=== PATIENT | female | born 1950 | race American Indian/Alaskan Native ===

== ENCOUNTER 2016-10-29 16:54 | Emergency (ER) | payer OTHER ==
[2016-10-29 17:58] VITALS: BP 149/73; PULSE 58; RESP 16; TEMP 98.3; O2SAT 100
--- NOTE | 2016-10-29 19:28 | ED PDOC ---
Lower Extremity Pain/Injury Time Seen by Provider: 10/29/16 18:58 Chief Complaint (Nursing): Fever Chief Complaint (Provider): knee pain History Per: Patient History/Exam Limitations: no limitations Additional Complaint(s): Brissa Carrillo is a 66 year old female, with a previous medical history of bone cancer, who presents to the ED with complaints of right knee pain ongoing for the past 2-3 days. Patient states associated symptoms of swelling to the right knee and bilateral calf pain but denies any chest pain or shortness of breath. Patient is status post a left knee replacement. PMD: none provided Past Medical History Reviewed: Historical Data, Nursing Documentation, Vital Signs Vital Signs: Last Vital Signs Temp 98.3 F 10/29/16 17:53 Pulse 58 L 10/29/16 17:53 Resp 16 10/29/16 17:53 BP 149/73 10/29/16 17:53 Pulse Ox 100 10/29/16 17:53 - Medical History PMH: No Chronic Diseases Other PMH: bone cancer - Family History Family History: States: Unknown Family Hx - Immunization History Hx Tetanus Toxoid Vaccination: No Hx Influenza Vaccination: No Hx Pneumococcal Vaccination: No - Home Medications Home Medications: Ambulatory Orders Medication Instructions Recorded Naproxen [Naprosyn] 500 mg PO Q12H #20 tab 10/29/16 - Allergies Allergies/Adverse Reactions: Allergies Allergy/AdvReac Type Severity Reaction Status Date / Time iodine Allergy ANAPHYLAXIS Verified 10/29/16 17:53 Review of Systems ROS Statement: Except As Marked, All Systems Reviewed And Found Negative Cardiovascular: Negative for: Chest Pain Respiratory: Negative for: Shortness of Breath Musculoskeletal: Positive for: Leg Pain (right knee pain and swelling ) Physical Exam - Reviewed Nursing Documentation Reviewed: Yes Vital Signs Reviewed: Yes - Physical Exam Appears: Positive for: Well, Non-toxic, No Acute Distress Cardiovascular/Chest: Positive for: Regular Rate, Rhythm Respiratory: Positive for: CNT, Normal Breath Sounds Extremity: Positive for: Normal ROM, Capillary Refill (< 2 seconds ), Swelling ( swelling to the right knee and lower pretibial areas bilaterally ). Negative for: Calf Tenderness, Other (warmth and effusion ) - ECG O2 Sat by Pulse Oximetry: 100 (RA) Pulse Ox Interpretation: Normal Medical Decision Making Medical Decision Making: Initial Plan: * labs * x-ray right knee * US duplex * reevaluation 22:06 US Duplex FINDINGS: Right deep veins: Unremarkable. No DVT in the right common femoral, femoral, proximal deep femoral or popliteal veins. The veins are compressible with normal color flow and augmentation. Right superficial veins: Unremarkable. No thrombus in the visualized right greater saphenous vein. Left deep veins: Unremarkable. No DVT in the left common femoral, femoral, proximal deep femoral or popliteal veins. The veins are compressible with normal color flow and augmentation. Left superficial veins: Unremarkable. No thrombus in the visualized left greater saphenous vein. Soft tissues: No acute findings. No popliteal cyst. IMPRESSION: Normal bilateral lower extremity duplex venous ultrasound. Scribe Attestation: Documented by Wendy Rouse, acting as a scribe for Godwin Sylvester MD. Provider Scribe Attestation: All medical record entries made by the Scribe were at my direction and personally dictated by me. I have reviewed the chart and agree that the record accurately reflects my personal performance of the history, physical exam, medical decision making, and the department course for this patient. I have also personally directed, reviewed, and agree with the discharge instructions and disposition. Disposition - Clinical Impression Clinical Impression: Degenerative joint disease of knee - Patient ED Disposition Is Patient to be Admitted: No Counseled Patient/Family Regarding: Studies Performed, Diagnosis, Need For Followup, Rx Given - Disposition Referrals: [facility] [Outside] Disposition: Routine/Home Disposition Time: 22:10 Condition: FAIR Prescriptions: Naproxen [Naprosyn] 500 mg PO Q12H #20 tab Instructions: Osteoarthritis (ED)
[2016-10-29] MEDS ORDERED: Naproxen 500 MG TAB PO STA (21:13)
[2016-10-29] MEDS ORDERED: Naproxen 500 MG TAB PO ONE (22:03)
--- NOTE | 2016-10-30 09:47 | US ---
PROCEDURE: Bilateral lower extremity venous duplex Doppler. HISTORY: Pain and swelling COMPARISON: None available. TECHNIQUE: Bilateral common femoral, superficial femoral, popliteal and posterior tibial veins were evaluated. Flow was assessed with color Doppler, compressibility, assessment of phasic flow and augmentation response. FINDINGS: COMMON FEMORAL VEIN: Right CFV: Normal. Left CFV: Normal. SUPERFICIAL FEMORAL VEIN: Right SFV: Normal. Left SFV: Normal. POPLITEAL VEIN: Right Popliteal: Normal. Left Popliteal: Normal. POSTERIOR TIBIAL VEIN: Right PTV: Normal. Left PTV: Normal. OTHER FINDINGS: None. IMPRESSION: No evidence of deep venous thrombosis.
--- NOTE | 2016-10-30 10:17 | RAD ---
PROCEDURE: Right Knee Radiographs. HISTORY: Pain and swelling COMPARISON: None. FINDINGS: BONES: There is diffuse bone demineralization. There is no acute fracture or bone destruction. JOINTS: There is moderate tricompartmental degenerative osteoarthrosis with reduced joint spaces and marginal osteophytes, worse in the medial compartment. JOINT EFFUSION: There is a small suprapatellar joint effusion. OTHER FINDINGS: There is moderate prepatellar soft tissue swelling. IMPRESSION: No acute fracture or dislocation. Moderate tricompartmental degenerative osteoarthrosis, worse in the medial compartment. Small suprapatellar joint effusion.
== END 2016-10-29 22:54 | disposition home or self-care (01) ==
LOC: H.ER 16:54
DX: M17.9 Osteoarthritis of knee, unspecified (principal)